=== PATIENT | female | born 1955 | race Caucasian/White ===

== ENCOUNTER → 2024-09-06 | Outpatient (CLI) | payer MEDICARE ==
[2024-09-06 13:43] VITALS: BP 141/90; PULSE 80; RESP 16; TEMP 98.2
--- NOTE | 2024-09-06 14:06 | P.GSCN ---
History of Present Illness Consult date: 09/06/24 Reason for Consult: atypical papillary lesion right breast retroaerolar area Requesting physician: Barbara Dsouza History of present illness: Janet is a 69 year old female seen for Dr. 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 She had a bilateral mammogram on 05-28-24 which showed an oval mass measuring 8 mm 2 cm from the nipple. No lesions were noted in the left breast, benign calcifications. An ultrasound was done of the right breaset showing a 9 mm lesion. this was at 7 oclock 1 cm from the nipple on 06-08-24. This led to a a core biopsy which showed the atypical papillary lesion. She felt a lesion in her right breast for about 2 months. It has not changed in size. She states in the left breast many years ago she was told she had a spot they were watching and no biopsy. She had not had any surgery on her breast. She is not complaining of any nipple discharge or skin changes. She has not had any recent trauma or infection in the breast. Caffeine: 2 cups/day nicotien: none chocolate: occasional BCP: 30 years hormones: none Note Sr. Dsouza 05-11-24 reviewed Family History: father: melanoma in hand to nodes sisters daughter; niece: breast and melanoma Hormonal History: menarche: 15 , breast fed: yes,age at first : 26 menopause: late 50's Surgical HIstory: eyes cataract bilateral Medical History: heart checked yearly, valve disease Social History: nicotine: none alcohol: occasional drugs: none Review of Systems - Constitutional Denies fever, Denies weight loss - EENT Eyes: denies blurred vision Ears: deny: decreased hearing, tinnitus Ears, nose, mouth and throat: Denies dysphagia - Breasts bilateral: as per HPI - Cardiovascular Denies chest pain, Denies shortness of breath - Respiratory Denies cough, Denies 7 - Gastrointestinal Reports as per HPI - Genitourinary Genitourinary: Denies dysuria, Denies hematuria Menstruation: Reports postmenopausal - Musculoskeletal Musculoskeleta Comment(s): sciatic nerve pain Reports as per HPI - Integumentary Denies rash, Denies unusual bruising - Neurological Neurologic Comment(s): at times passes out when anxious Denies headaches, Denies syncope - Psychiatric Reports as per HPI - Endocrine Reports as per HPI - Hematologic/Lymphatic Denies easy bleeding, Denies easy bruising Hematologic/Lymphatic Comment(s): baby aspirin nightly - Allergic/Immunologic Reports as per HPI Medications and Allergies Home Medications Medication Instructions Recorded Confirmed Type Aspirin [Adult Low Dose Aspirin EC] 81 mg PO DAILY 09/06/24 09/06/24 History Atorvastatin [Lipitor] 20 mg PO DAILY 09/06/24 09/06/24 History DULoxetine HCL [Cymbalta] 30 mg PO BID 09/06/24 09/06/24 History L.acidoph,Paracasei, B.lactis 1 cap PO DAILY 09/06/24 09/06/24 History [Probiotic] Multivitamin [Multivitamins Adult 1 tab PO DAILY 09/06/24 09/06/24 History Gummies] Allergies Allergy/AdvReac Type Severity Reaction Status Date / Time No Known Allergies Allergy Unverified 09/06/24 13:39 Surgical - Exam - General no distress - Eyes normal ocular movement - ENT no hearing loss - Neck trachea midline - Respiratory normal respiratory effort, clear to auscultation - Cardiovascular Rhythm: regular Heart Sounds: normal: S1, S2 - Abdomen Abdomen: soft, non tender, no guarding, no rigid, no rebound - Integumentary normal turgor - Neurologic no disoriented, no combative - Musculoskeletal normal gait - Psychiatric oriented to time, oriented to person, oriented to place, speech is normal, memory intact Breast Exam: BRA: 36B Inspection: Left nipple inverted, bilateral grade 2 ptosis Palpation: Right breast: Multi positional exam in the 6 to 7 o'clock position of the right periareolar region there is some increased nodularity which is new as per the patient, no other dominant masses or nodules of concern Right axilla: No adenopathy of concern Left breast: Multi positional exam no dominant masses or nodules of concern Left axilla: No adenopathy of concern Results Abnormal right breast mammogram and physical examination/core biopsy revealed atypical papillary lesion Assessment and Plan Assessment: Imression: Atypical papillary lesion right breast periareolar region Family history of valvular heart disease follows with cardiology Plan: Needle localization excisional biopsy of papillary lesion right breast Cardiac clearance Clearance by primary care doctor Risk and benefits of procedure discussed with patient and her , include but are not limited to bleeding, infection, reaction to the anesthetic. If the needle were to slip it is possible that the tissue would not be adequately sampled and further tissue acquisition may be necessary. They understand and wish to proceed. Secondary to the location of the lesion there may be some nipple retraction related to the biopsy procedure.
== END ==
LOC: WWCWWP 13:01
PROVIDERS: ATTEND Surgery
DX: Z12.31 Encounter for screening mammogram for malignant neoplasm of breast (principal); N63.10 Unspecified lump in the right breast, unspecified quadrant

== ENCOUNTER → 2024-10-18 | Outpatient (CLI) | payer MEDICARE ==
[2024-10-18 12:21] VITALS: BP 161/84; PULSE 95; RESP 17; TEMP 97.8
--- NOTE | 2024-10-18 12:31 | P.BCPN ---
Subjective Progress Note Date: 10/18/24 Principal diagnosis: Atypical papillary lesion right breast retroareolar area 10-18-24 Reason for Consult: atypical papillary lesion right breast retroaerolar area Requesting physician: Barbara Dsouza History of present illness: Janet is a 69 year old female seen for Dr. Dsouza with a biopsy proven atypical intraductal papilloma in the retroaerolar area of the right breast. She had a bilateral mammogram on 05-28-24 which showed an oval mass measuring 8 mm 2 cm from the nipple. No lesions were noted in the left breast, benign calcifications. An ultrasound was done of the right breast showing a 9 mm lesion. this was at 7 oclock 1 cm from the nipple on 06-08-24. This led to a a core biopsy which showed the atypical papillary lesion. The clip appears to be in the correct location. She felt a lesion in her right breast for about 3 months. It has not changed in size. She states in the left breast many years ago she was told she had a spot they were watching and no biopsy. She had not had any surgery on her breast. She is not complaining of any nipple discharge or skin changes. She has not had any recent trauma or infection in the breast. Caffeine: 2 cups/day nicotien: none chocolate: occasional BCP: 30 years hormones: none Note Sr. Dsouza 05-11-24 reviewed Family History: father: melanoma in hand to nodes sisters daughter; niece: breast and melanoma Hormonal History: menarche: 15 , breast fed: yes,age at first : 26 menopause: late 50's Surgical HIstory: eyes cataract bilateral Medical History: heart checked yearly, valve disease Social History: nicotine: none alcohol: occasional drugs: none Review of Systems - Constitutional Denies fever, Denies weight loss - EENT Eyes: denies blurred vision Ears: deny: decreased hearing, tinnitus Ears, nose, mouth and throat: Denies dysphagia - Breasts bilateral: as per HPI - Cardiovascular Denies chest pain, Denies shortness of breath - Respiratory Denies cough - Gastrointestinal Reports as per HPI - Genitourinary Genitourinary: Denies dysuria, Denies hematuria Menstruation: Reports postmenopausal - Musculoskeletal Musculoskeleta Comment(s): sciatic nerve pain Reports as per HPI - Integumentary Denies rash, Denies unusual bruising - Neurological Neurologic Comment(s): at times passes out when anxious Denies headaches, Denies syncope - Psychiatric Reports as per HPI - Endocrine Reports as per HPI - Hematologic/Lymphatic Denies easy bleeding, Denies easy bruising Hematologic/Lymphatic Comment(s): baby aspirin nightly - Allergic/Immunologic Reports as per HPI Medications and Allergies Home Medications Medication Instructions Recorded Confirmed Type Aspirin [Adult Low Dose Aspirin EC] 81 mg PO DAILY 09/06/24 09/06/24 History Atorvastatin [Lipitor] 20 mg PO DAILY 09/06/24 09/06/24 History DULoxetine HCL [Cymbalta] 30 mg PO BID 09/06/24 09/06/24 History L.acidoph,Paracasei, B.lactis 1 cap PO DAILY 09/06/24 09/06/24 History [Probiotic] Multivitamin [Multivitamins Adult 1 tab PO DAILY 09/06/24 09/06/24 History Gummies] Allergies Allergy/AdvReac Type Severity Reaction Status Date / Time No Known Allergies Allergy Unverified 09/06/24 13:39 Objective - Constitutional General appearance: Present: cooperative - EENT Eyes: Present: EOMI ENT: Present: hearing grossly normal - Neck Neck: Present: normal ROM - Breast Breast-Narrative: Breast Exam: BRA: 36B Inspection: Left nipple inverted, bilateral grade 2 ptosis Palpation: Right breast: Multi positional exam in the 6 to 7 o'clock position of the right periareolar region there is some increased nodularity which is new as per the patient, no other dominant masses or nodules of concern Right axilla: No adenopathy of concern Left breast: Multi positional exam no dominant masses or nodules of concern Left axilla: No adenopathy of concern Bra Size: 36B Ptosis: Grade 2: Right Breast Ptosis, Left Breast Ptosis Breast: left: nipple abnormal (inverted left) Right Breast Palpation (Multi-positional): Fibrocystic Changes Left Breast Palpation (Multi-positional): Fibrocystic Changes Right Axilla Palpation: No adenopathy of concern Left Axilla Palpation: No adenopathy of concern - Respiratory Respiratory: bilateral: CTA - Cardiovascular Rhythm: regular Heart sounds: normal: S1, S2 - Musculoskeletal Musculoskeletal: Present: gait normal - Psychiatric Psychiatric: Present: A&O x's 3, appropriate affect, intact judgment & insight Assessment and Plan Plan: Impression: Atypical papillary lesion right breast periareolar region Family history of valvular heart disease follows with cardiology Plan: Needle localization excisional biopsy of papillary lesion right breast Cardiac clearance Clearance by primary care doctor Risk and benefits of procedure discussed with patient and her , include but are not limited to bleeding, infection, reaction to the anesthetic. If the needle were to slip it is possible that the tissue would not be adequately sampl ed and further tissue acquisition may be necessary. They understand and wish to proceed. Secondary to the location of the lesion there may be some nipple retraction related to the biopsy procedure. Consent: I have discussed the risks, benefits and alternative therapies for the above-mentioned procedure and for both sedation/analgesia as well as necessary blood product administration, if indicated, as they pertain to this patient. The patient has indicated understanding and acceptance of the risks and procedures discussed. Additional CC's: Barbara Dsouza Prep Education Provided - Preoperative Education Given Pre-Op Kit Given Date: 10/18/24 - Functional Assessment Performed?: Yes (arm abduction passed) Referal Provided?: No - Smoking Cessation Education Provided?: No (non smoker)
== END ==
LOC: WWCWWP 12:05
PROVIDERS: ATTEND Surgery
DX: D24.1 Benign neoplasm of right breast (principal); Z82.49 Family history of ischemic heart disease and other diseases of the circulatory system

== ENCOUNTER 2024-10-30 07:20 | Day surgery (SDC) | payer MEDICARE ==
[~2024-10-30 07:20] MED LIST: HYDROmorphone 0.5 MG/0.5 ML SYRINGE IVP PRN; LIDOCAINE 1% (10MG/ML) FOR IV START INTRADERMA PRN; METHYLENE BLUE 50 MG, DEXTROSE 5% IN WATER 50 ML MISCELLANE ONE; MIDAZOLAM 2 MG/2 ML VIAL IV PRN; fentaNYL (PF) 50 MCG/ML 2 ML AMP IVP PRN
[2024-10-30] MEDS: LACTATED RINGERS 1,000 ML IV SCH (08:02)
[2024-10-30] MEDS: IV FLUID CONTINUATION 1,000 ML IV ONE (08:04)
[2024-10-30] MEDS: ACETAMINOPHEN TAB 500 MG TAB PO PRN (08:18)
[2024-10-30] MEDS: ALPRAZolam 0.25 MG TAB PO STA (08:21)
[2024-10-30] MEDS: SODIUM BICARB 8.4% 50 ML VIAL (1 MEQ/ML) MISCELLANE ONE (08:51)
[2024-10-30] MEDS: LIDOCAINE 1% INJ 10MG/ML (20 ML MDV) SQ ONE (08:51)
[2024-10-30] MEDS: METHYLENE BLUE 50 MG/10 ML VIAL MISCELLANE ONE (08:57)
[2024-10-30] MEDS: HEPARIN SODIUM,PORCINE 5,000 UNIT/ML 1 ML VIAL SQ PRN (09:23)
[2024-10-30] MEDS: DEXAMETHASONE SOD PHOSPHATE 4 MG/ML 1 ML VIAL IV ONE (09:23)
[2024-10-30] MEDS: ONDANSETRON 4 MG/2 ML VIAL IVP ONE (09:23)
[2024-10-30] MEDS ORDERED: PROPOFOL 10 MG/ML 20 ML VIAL IV ONE (09:24)
[2024-10-30] MEDS ORDERED: fentaNYL (PF) 50 MCG/ML 2 ML AMP ONE (09:24)
[2024-10-30] MEDS ORDERED: GLYCOPYRROLATE 0.2 MG/ML 2 ML VIAL ONE (09:24)
[2024-10-30] MEDS ORDERED: LIDOCAINE 1% INJ 10MG/ML (20 ML MDV) ONE (09:24)
[2024-10-30] MEDS ORDERED: PHENYLEPHRINE-0.9% NACL SYG 1,000 MCG/10 ML SYRINGE ONE (09:24)
[2024-10-30] MEDS: ceFAZolin 2 GM in DEXTROSE 5% IN WATER 50 ML IVPB PRN (09:29)
[2024-10-30] MEDS: LIDOCAINE 1% INJ 10MG/ML (30 ML VIAL-PF) SQ ONE ×2 (09:42→10:09)
--- NOTE | 2024-10-30 10:13 | P.BCAON ---
Date of Procedure: 10/30/24 Preoperative Diagnosis: Atypical intraductal papilloma right breast Postoperative Diagnosis: Same Procedure(s) Performed: Needle localization excisional lumpectomy right breast Anesthesia: SVITLANA Surgeon: Ambika Jones Estimated Blood Loss (ml): 5 IV fluids (ml): 500 Pathology: other (Right breast tissue) Condition: stable Disposition: same day Indications for Procedure: Right breast core biopsy atypical intraductal papilloma Operative Findings: Nodular density in breast Description of Procedure: The patient was first seen in the radiology department. Needle localization via ultrasound guidance was performed of the area of nodularity in the right breast. Approximately 1 cc of diluted methylene blue was injected at that site as well. The patient was then brought to the operative suite. Following induction of anesthesia the right breast was prepped and draped in a sterile fashion. A periareolar incision was made and carried down to the blue dye in the thickened part of the needle. Surrounding tissue was excised. A palpable nodule was present in this tissue believed to be the area of concern. Following this the wound was well irrigated. Hemostasis was attained using the electrocautery device. Titanium clips were placed. Surgicel in powder form was placed. The deep tissues were closed using 3-0 Vicryl suture. The subcutaneous tissue was closed with a running 3-0 Vicryl suture. A 4-0 running Monocryl suture was placed. 10 cc of 1% lidocaine were injected into the incision. Surgical glue was placed. All instrument and sponge counts were correct at the end of the case. The specimen was painted for orientation. Radiograph of the specimen revealed the lesion of concern had been removed. The patient tolerated the procedure in stable condition.
[2024-10-30 10:29] VITALS: TEMP 97
[2024-10-30 12:29] VITALS: BP 123/74; PULSE 67; RESP 18
--- NOTE | 2024-11-08 08:20 | MM ---
Reason for Exam: Post Procedure Mammogram. Risk Values: Candida 5 year model risk: 1.1%. NCI Lifetime model risk: 3.3%. Tissue Density: Right: The breasts are heterogeneously dense, which may obscure small masses. Pathology Description: Location: 7 o'clock. Needle Type: 5 cm Kopan The procedure of needle localization with wire placement and than surgical excision was explained to the patient. Benefits, alternatives, and risks were discussed. An informed consent was then obtained. Ultrasound guidance was chosen. The overlying skin was prepped and draped in usual sterile fashion. Lidocaine buffered with bicarbonate was used as anesthetic into the skin and subcutaneous tissue up to the level of area of concern. A 5 cm needle was used. It was placed via ultrasound guidance. At this point ordering surgeon comes to inject diluted methylene blue which is her protocol. At this point, wire was placed and the needle was withdrawn. The wire was fixed to patient's skin. Postprocedure mammogram was performed as per ordering surgeon request and shows wire in satisfactory position relative to the targeted biopsy clip. The patient tolerated the procedure well without any immediate complication. The patient was kept in the radiology department for short stay after the procedure and then taken to surgery for surgical excision. Targeted biopsy clip and wire are identified in specimen mammogram. The patient was kept in hospital for short stay after the procedure and then discharged home in stable condition. Impression: Successful, uncomplicated needle localization with wire placement and surgical excision of targeted biopsy clip in the right breast, full pathology results to follow. [facility], , 10/31/2024 6:19 AM. Pathology Results: Result: Malignant. Pathology and radiology were reviewed. Findings are concordant. 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 See Surgical Pathology Cancer Case Summary and Comment. Negative for invasive carcinoma. All margins negative for DCIS. DCIS present approximately 1.5 mm from closest superior margin, 1 mm from medial margin, very close to and less than 1 mm from posterior margin, and very close to and less than 1 mm from anterior margin. Overall Assessment: Malignant Assessment: MG diagnostic mammo RT wo CAD - Right: Known biopsy proven malignancy, BI-RAD 6. Management: Diagnostic Mammogram of the right breast in 6 months. Electronically signed and approved by: Cam Lucas M.D.
== END 2024-10-30 12:32 | disposition home or self-care (01) ==
LOC: OR 07:20
PROVIDERS: ATTEND Surgery
DX: D05.11 Intraductal carcinoma in situ of right breast (principal); E72.12 Methylenetetrahydrofolate reductase deficiency; E78.5 Hyperlipidemia, unspecified; F41.9 Anxiety disorder, unspecified; Z79.82 Long term (current) use of aspirin; Z79.899 Other long term (current) drug therapy; Z82.49 Family history of ischemic heart disease and other diseases of the circulatory system
CPT/HCPCS: 19125; 19285; 88342; 88307; 88341; 77065; 76098; C1819; J1644; J1100; J0690; J2405; J2003 ×2; J3010; J2704; Q9968; J2371; J1596

== ENCOUNTER → 2024-11-08 | Outpatient (CLI) | payer MEDICARE ==
[2024-11-08 11:28] VITALS: BP 137/81; PULSE 78; RESP 17; TEMP 97.4
--- NOTE | 2024-11-08 11:33 | P.BCPO ---
Progress Note - Text Progress Note Date: 11/08/24 Janet is a 69 year old status post right breast lumpectomy on 10-30-24. Size 10 mm. Less than 1 mm from anterior and posterior margin, 1.5 mm from superior margin, 1 mm from medial margin. Physical Examination: Lungs: Clear Heart: Regular rate and rhythm Incision: Clean and dry Impression: Patient doing well postoperative margins are close less than 2 mm at several sites but negative Plan: Presentation of case at tumor board Appointment medical oncology Appointment radiation oncology Post Op Education - Post Op Education Post Op Education Provided Date: 11/08/24 Path Report - Was patient given path report? Path Report Date Given: 11/08/24
== END ==
LOC: WWCWWP 10:59
PROVIDERS: ATTEND Surgery
DX: Z48.89 Encounter for other specified surgical aftercare (principal); Z98.890 Other specified postprocedural states

== ENCOUNTER 2025-01-22 07:00 | Day surgery (SDC) | payer MEDICARE ==
[2025-01-18 10:38] VITALS: BMI 25.1
[~2025-01-22 07:00] MED LIST changes: -METHYLENE BLUE 50 MG, DEXTROSE 5% IN WATER 50 ML MISCELLANE ONE; -MIDAZOLAM 2 MG/2 ML VIAL IV PRN; -fentaNYL (PF) 50 MCG/ML 2 ML AMP IVP PRN
[2025-01-22] MEDS: IV FLUID CONTINUATION 1,000 ML IV ONE (07:39)
[2025-01-22] MEDS: LACTATED RINGERS 1,000 ML IV SCH (07:42)
[2025-01-22] MEDS: ACETAMINOPHEN TAB 500 MG TAB PO PRN (07:42)
[2025-01-22] MEDS: DEXAMETHASONE SOD PHOSPHATE 4 MG/ML 1 ML VIAL IV ONE (07:42)
[2025-01-22] MEDS: ONDANSETRON 4 MG/2 ML VIAL IVP ONE (07:42)
[2025-01-22] MEDS: HEPARIN SODIUM,PORCINE 5,000 UNIT/ML 1 ML VIAL SQ PRN (07:43)
[2025-01-22 08:03] LABS: HCT 39.4 % (37.2-46.3); HGB 13.0 g/dL (12.0-15.0); MCH 31.0 pg (27.0-32.0); MCHC 33.0 g/dL (32.0-37.0); MCV 93.8 fL (80.0-97.0); Platelet Count 245 10*3/uL (140-440); RBC 4.20 10*6/uL (4.10-5.20); RDW 12.6 % (11.5-14.5); WBC 5.37 10*3/uL (4.50-10.00)
--- NOTE | 2025-01-22 08:13 | P.PN ---
Subjective Progress Note Date: 01/22/25 Principal diagnosis: DCIS right breast 01-22-25 Principal diagnosis: DCIS right breast Subjective Principal diagnosis: Atypical papillary lesion right breast retroareolar area 10-18-24/ DCIS 10-30-24 Reason for Consult: atypical papillary lesion right breast retroaerolar area/ DCIS right breast Requesting physician: Barbara Dsouza History of present illness: Janet is a 69 year old female seen for Dr. Dsouza with a biopsy proven atypical intraductal papilloma in the retroaerolar area of the right breast. She had a bilateral mammogram on 05-28-24 which showed an oval mass measuring 8 mm 2 cm from the nipple. No lesions were noted in the left breast, benign calcifications. An ultrasound was done of the right breast showing a 9 mm lesion. this was at 7 oclock 1 cm from the nipple on 06-08-24. This led to a a core biopsy which showed the atypical papillary lesion. The clip appears to be in the correct location. She felt a lesion in her right breast for about 3 months. It has not changed in size. She states in the left breast many years ago she was told she had a spot they were watching and no biopsy. She had not had any surgery on her breast. She is not complaining of any nipple discharge or skin changes. She has not had any recent trauma or infection in the breast. ON 10-30-24 she had a lumpectomy adn this showed DCIS. Lesion 1 cm, ER+ Pr+, 1.5 mm from closest superior margin, 1 mm from medial margin, and less than 1 mm from posterior and anterior margins. She was seen by Dr. Milligan and secondary to the high-grade of the tumor, moderate hormone receptor positivity, and her willingness to have additional surgery the recommendation was additional excision. Her case was presented at tumor board and this was recommended note medical oncology reviewed 11-22-24 note 11-29-24 radiation oncology reviewed Caffeine: 2 cups/day nicotien: none chocolate: occasional BCP: 30 years hormones: none Note Dr. Dsouza 05-11-24 reviewed Family History: father: melanoma in hand to nodes sisters daughter; niece: breast and melanoma Hormonal History: menarche: 15 , breast fed: yes,age at first : 26 menopause: late 50's Surgical History: eyes cataract bilateral Medical History: heart checked yearly, valve disease Social History: nicotine: none alcohol: occasional drugs: none Review of Systems - Constitutional Denies fever, Denies weight loss - EENT Eyes: denies blurred vision Ears: deny: decreased hearing, tinnitus Ears, nose, mouth and throat: Denies dysphagia - Breasts bilateral: as per HPI - Cardiovascular Denies chest pain, Denies shortness of breath - Respiratory Denies cough - Gastrointestinal Reports as per HPI - Genitourinary Genitourinary: Denies dysuria, Denies hematuria Menstruation: Reports postmenopausal - Musculoskeletal Musculoskeleta Comment(s): sciatic nerve pain Reports as per HPI - Integumentary Denies rash, Denies unusual bruising - Neurological Neurologic Comment(s): at times passes out when anxious Denies headaches, Denies syncope - Psychiatric Reports as per HPI - Endocrine Reports as per HPI - Hematologic/Lymphatic Denies easy bleeding, Denies easy bruising Hematologic/Lymphatic Comment(s): baby aspirin nightly - Allergic/Immunologic Reports as per HPI Medications and Allergies Home Medications Medication Instructions Recorded Confirmed Type Aspirin [Adult Low Dose Aspirin EC] 81 mg PO DAILY 09/06/24 09/06/24 History Atorvastatin [Lipitor] 20 mg PO DAILY 09/06/24 09/06/24 History DULoxetine HCL [Cymbalta] 30 mg PO BID 09/06/24 09/06/24 History L.acidoph,Paracasei, B.lactis 1 cap PO DAILY 09/06/24 09/06/24 History [Probiotic] Multivitamin [Multivitamins Adult 1 tab PO DAILY 09/06/24 09/06/24 History Gummies] Allergies Allergy/AdvReac Type Severity Reaction Status Date / Time No Known Allergies Allergy Unverified 09/06/24 13:39 Objective - Vital Signs Vital signs: Vital Signs Temp 96.8 F L 01/22/25 07:35 Pulse 60 01/22/25 07:35 Resp 14 01/22/25 07:35 BP 165/80 01/22/25 07:35 Pulse Ox 97 01/22/25 07:35 FiO2 Intake & Output 01/21/25 01/22/25 01/22/25 18:59 06:59 18:59 Weight 77.4 kg - Constitutional General appearance: Present: cooperative - EENT Eyes: Present: EOMI ENT: Present: hearing grossly normal - Neck Neck: Present: normal ROM - Respiratory Respiratory: bilateral: CTA - Cardiovascular Rhythm: regular Heart sounds: normal: S1, S2 - Integumentary Integumentary: Present: normal turgor - Musculoskeletal Musculoskeletal: Present: gait normal - Psychiatric Psychiatric: Present: A&O x's 3, appropriate affect, intact judgment & insight - Additional findings Additional findings: Bra Size: 36B Ptosis: Grade 2: Right Breast Ptosis, Left Breast Ptosis Breast: left: nipple abnormal (inverted left) Right Breast Palpation (Multi-positional): Fibrocystic Changes, well healed scar right breast Left Breast Palpation (Multi-positional): Fibrocystic Changes Right Axilla Palpation: No adenopathy of concern Left Axilla Palpation: No adenopathy of concern - Labs CBC & Chem 7: 01/22/25 07:01 Assessment and Plan Assessment: Impression: Atypical papillary lesion right breast periareolar region/DCIS on excisional biopsy on 10-30-24 close posterior and anterior margins close superior and medial margins Family history of valvular heart disease follows with cardiology Plan: re-excision of lumpectomy site; attention posterior, anterior, medial and superior margins Cardiac clearance Clearance by primary care doctor Risk include but are not limited to bleeding, infection, reaction to the anesthetic. If margins were to be positive again then further tissue acquisition may be necessary. They understand and wish to proceed. Consent: I have discussed the risks, benefits and alternative therapies for the above-mentioned procedure and for both sedation/analgesia as well as necessary blood product administration, if indicated, as they pertain to this patient. The patient has indicated understanding and acceptance of the risks and procedures discussed. Preoperative Education Given Pre-Op Kit Given - Functional Assessment Performed?: Yes (arm abduction passed) Referal Provided?: No - Smoking Cessation Education Provided?: No (non smoker) Additional CC's: Barbara Dsouza
[2025-01-22] MEDS: LIDOCAINE 1% INJ 10MG/ML (20 ML MDV) SQ ONE ×2 (08:32→10:03)
[2025-01-22] MEDS ORDERED: MIDAZOLAM 2 MG/2 ML VIAL ONE (08:34)
[2025-01-22] MEDS ORDERED: ePHEDrine 50 MG/ML 1 ML VIAL ONE (08:34)
[2025-01-22] MEDS ORDERED: PROPOFOL 10 MG/ML 20 ML VIAL IV ONE (08:34)
[2025-01-22] MEDS ORDERED: fentaNYL (PF) 50 MCG/ML 2 ML AMP ONE (08:34)
[2025-01-22] MEDS ORDERED: HYDROmorphone (PF) 1 MG/ML ONE (08:34)
[2025-01-22] MEDS ORDERED: LIDOCAINE 1% INJ 10MG/ML (20 ML MDV) ONE (08:34)
--- NOTE | 2025-01-22 08:51 | P.NAPBC ---
NAPBC Queries - NAPBC Queries Was patient's case review presented at [facility] tumor board? If no, comment.: Yes Was patient's pathology reviewed at [facility]? If no, comment.: Yes Was breast conservation surgery offered? If no, comment.: Yes Was sentinel node biopsy offered? If no, comment.: No Was diagnosis confirmed by percutaneous core biopsy? If no, comment.: Yes Is patient mastectomy patient?: No Was a preop referral to reconstructive surgeon offered?: No Clinical Stage: right breast DCIS stage 0
[2025-01-22 08:59] LABS: African American GFR (CKD) >90 (>60 ml/min/1.73 sqM); Anion Gap 9 mmol/L; Blood Urea Nitrogen 20 mg/dL (7-17); Calcium 9.4 mg/dL (8.4-10.2); Carbon Dioxide 24 mmol/L (22-30); Chloride 108 mmol/L (98-107); Glucose 82 mg/dL (74-99); Non-African American GFR(CKD) >90 (>60 ml/min/1.73 sqM); Sodium 141 mmol/L (137-145)
[2025-01-22 09:13] LABS: Potassium 4.6 mmol/L (3.5-5.1)
[2025-01-22] MEDS: LACTATED RINGERS 1,000 ML IV ONE (09:56)
--- NOTE | 2025-01-22 09:59 | P.BCAON ---
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 Margins were noted to be close and after evaluation by medical oncology it was recommended she undergo reexcision of the lumpectomy cavity. The patient was brought to the operative suite. Following induction of anesthesia the right breast was prepped and draped in a sterile fashion. The prior infra areolar incision was reexcised with excision of skin anteriorly. The entire cavity was excised and the size of the cavity was 3 x 2 cm. The cavity posteriorly was dissected down to the pectoralis muscle. Anteriorly skin was removed. Superior inferior medial and lateral new margins were obtained. The cavity was completely excised. It was painted for orientation. Titanium clips were placed to yumiko the cavity. The wound was well irrigated. After we are sure that hemostasis was attained Surgicel and powder form was placed. A new superior pole 3 x 2 cm was formed. And inferior tissue mobilization 3 x 2 cm was formed. The mobilized tissues were brought together to close the defect. This was done with 3-0 Vicryl suture. The skin was reapproximated using 3-0 Vicryl suture in the subcutaneous tissue. A running 3-0 subcutaneous suture was placed. A 4-0 subcuticular Monocryl suture was placed. 10 cc of 1% lidocaine were injected into the incision. The patient tolerated the procedure in stable condition. All instrument and sponge counts were correct at the end of the case.
[2025-01-22 10:24] VITALS: TEMP 96.9
[2025-01-22 11:15] VITALS: RESP 16
[2025-01-22 11:30] VITALS: PULSE 67
[2025-01-22 11:46] VITALS: BP 152/85
== END 2025-01-22 12:06 | disposition home or self-care (01) ==
LOC: OR 07:00
PROVIDERS: ATTEND Surgery
DX: D05.11 Intraductal carcinoma in situ of right breast (principal); N60.21 Fibroadenosis of right breast; F17.200 Nicotine dependence, unspecified, uncomplicated; Z17.21 Progesterone receptor positive status; Z17.0 Estrogen receptor positive status [ER+]; Z79.02 Long term (current) use of antithrombotics/antiplatelets; Z79.82 Long term (current) use of aspirin; Z79.899 Other long term (current) drug therapy
CPT/HCPCS: 80048; 85027; 19301; J2250; J1644; J1100; J0690; J2405; J2003; J3010; J1171; J2704; 88307

== ENCOUNTER → 2025-01-31 | Outpatient (CLI) | payer MEDICARE ==
[2025-01-31 12:06] VITALS: BP 143/83; PULSE 78; RESP 17; TEMP 97.9
--- NOTE | 2025-01-31 12:14 | P.BCPO ---
Progress Note - Text Progress Note Date: 01/31/25 Janet is a 69 year old status post re-escision of a lumpectomy site on . All margins (-). She had her initial resection on 10-30-24; negative for invasive carcinoma. All margins negative for DCIS. DCIS present 1.5 mm from closest superior margin, 1 mm from medial margin, very close to an less than 1 mm from posterior margin and close and less than 1 mm from anterior margin. Physical Exam: lungs: clear heart: RRR incision: clean and dry Impression: patient doing well Plan: follow up medical and radiation oncology follow up here in 4 months follow up sooner any concerns Post Op Education - Post Op Education Post Op Education Provided Date: 01/31/25 - Functional Assessment Performed?: Yes (arm abduction passed) Path Report - Was patient given path report? Path Report Date Given: 01/31/25
== END ==
LOC: WWCWWP 11:42
PROVIDERS: ATTEND Surgery
DX: Z48.89 Encounter for other specified surgical aftercare (principal); Z98.890 Other specified postprocedural states